=== PATIENT | male | born 1975 | race Caucasian/White ===

== ENCOUNTER 2021-05-11 12:16 | Emergency (ER) | payer OTHER ==
[~2021-05-11] VITALS: Ht 180.3 cm; Wt 106.6 kg
[2021-05-11 13:24] VITALS: BP 192/110
--- NOTE | 2021-05-11 13:24 | NUR ---
PT C/O SORE THROAT X 3 MONTHS. A/OX4. TOLERATING R/A WELL AT 100% WITH NO SOB. VSS
[2021-05-11] MEDS ORDERED: LIDOCAINE VISCOUS 2% UD 15 ML UDC MM ONE (14:00)
[2021-05-11] MEDS ORDERED: MAG HYDROX/AL HYDROX/SIMETH 30 ML UDC PO ONE (14:00)
[2021-05-11] MEDS ORDERED: MAG HYDROX/AL HYDROX/SIMETH 30 ML UDC ONE (14:04)
[2021-05-11] MEDS ORDERED: LIDOCAINE VISCOUS 2% UD 15 ML UDC ONE (14:06)
--- NOTE | 2021-05-11 14:44 | NUR ---
Patient discharged to home in stable condition. Written and verbal after care instructions given. Patient verbalizes understanding of instruction.
== END 2021-05-11 14:45 | disposition home or self-care (01) ==
LOC: ER 12:21
DX: J02.9 Acute pharyngitis, unspecified (principal); F41.9 Anxiety disorder, unspecified; E11.9 Type 2 diabetes mellitus without complications; Z88.1 Allergy status to other antibiotic agents

== ENCOUNTER 2023-04-29 16:21 | Emergency (ER) | payer OTHER ==
[~2023-04-29] VITALS: Ht 180.3 cm; Wt 122.5 kg
[2023-04-29] MEDS ORDERED: ONDA4TAB5 PO ×2 (17:28→17:48)
[2023-04-29] MEDS ORDERED: CLIN300C12 PO ×2 (17:28→17:48)
[2023-04-29 17:48] VITALS: BP 155/78; TEMP 98.4; O2SAT 96
== END 2023-04-29 17:49 | disposition home or self-care (01) ==
LOC: ER 16:31
DX: A05.9 Bacterial foodborne intoxication, unspecified (principal); L03.116 Cellulitis of left lower limb; I10 Essential (primary) hypertension; F41.9 Anxiety disorder, unspecified; Z88.8 Allergy status to other drugs, medicaments and biological substances